=== PATIENT | female | born 1955 | race Two or more races ===

== ENCOUNTER 2021-06-23 15:32 | Inpatient (IN) | payer OTHER ==
[~2021-06-23] VITALS: Ht 154.9 cm; Wt 59.6 kg
[2021-06-23 16:06] LABS: Urine Bacteria FEW /hpf (None Seen); Urine Blood 1+ /uL (Negative); Urine Specific Gravity 1.016 (1.001-1.035); Urine WBC 14 /hpf (0 - 5)
[2021-06-23 16:16] LABS: Basophils # (auto) 0.2 10 ^3/uL (0-0.2); Basophils % (auto) 1.1 % (0.0-2.0); Eosinophils # (auto) 0.2 10 ^3/uL (0-0.8); Eosinophils % (auto) 1.2 % (0.0-7.0); Hematocrit 40.3 % (36.0-46.0); Hemoglobin 13.6 g/dL (12.2-16.2); Lymphocytes # (auto) 4.3 10 ^3/uL (0.4-5.4); Lymphocytes % (auto) 30.4 % (10.0-50.0); Mean Corpuscular Hemoglobin 32.1 pg (28.0-32.0); Mean Corpuscular Hgb Conc. 33.8 g/dL (32.0-36.0); Monocytes # (auto) 0.9 10 ^3/uL (0-1.3); Monocytes % (auto) 6.1 % (0.0-12.0); Neutrophils # (auto) 8.7 10 ^3/uL (1.6-8.6); Neutrophils % (auto) 61.2 % (37.0-80.0); Nucleated Red Blood Cells % 0.2 %; Red Blood Cells 4.25 10^6/uL (4.0-5.20); Red Cell Distribution Width 13.9 % (11.8-14.3); White Blood Cell 14.2 10^3/uL (4.4-10.8)
[2021-06-23 16:34] LABS: Albumin 3.6 g/dL (3.4-5.0); BUN/Creatinine Ratio 16.7; Calcium 9.2 mg/dL (8.5-10.1); Magnesium 2.2 mg/dL (1.6-2.6); Potassium 3.3 mmol/L (3.5-5.1)
[2021-06-23 16:37] LABS: Bilirubin, Total 0.5 mg/dL (0.2-1.0); Total Protein 8.4 g/dL (6.4-8.2)
[2021-06-23] MEDS ORDERED: cefTRIAXone 1GM/50ML D5W 50 ML IV ONE (21:15)
[2021-06-23] MEDS ORDERED: metroNIDAZOLE 500MG/100ML 100 ML IV ONE (21:15)
[2021-06-24] MEDS ORDERED: ONDANSETRON HCL 4 MG/2 ML VIAL IV PRN (00:45)
[2021-06-24] MEDS ORDERED: TEMAZEPAM 15 MG CAP PO PRN (00:45)
[2021-06-24] MEDS: ACETAMINOPHEN 325 MG TAB PO PRN (02:14)
[2021-06-24] MEDS ORDERED: HYDROcodone-ACET 5/325MG TAB PO PRN (03:45)
[2021-06-24] MEDS ORDERED: PNEUMOCOCCAL VACC POLYS 25 MCG/0.5 ML VIAL IM ONE (04:45)
[2021-06-24 04:47] VITALS: BP 107/68
[2021-06-24 05:00] VITALS: BP 107/68
[2021-06-24] MEDS: amLODIPine BESYLATE 5 MG TAB PO SCH (10:53)
[2021-06-24] MEDS: ENOXAPARIN SOD 40 MG/0.4 ML SYRINGE SC SCH (10:53)
[2021-06-24 17:00] VITALS: BP 121/62
[2021-06-24] MEDS ORDERED: LACTULOSE 20Gm/30ML SOLN PO PRN (19:00)
[2021-06-24] MEDS ORDERED: levoFLOXacin 750MG 150 ML IV SCH (20:00)
[2021-06-24] MEDS ORDERED: cefTRIAXone 1GM/50ML D5W 50 ML IV SCH (22:00)
[2021-06-24] MEDS ORDERED: diphenhdrAMINE HCL 50 MG/1 ML VL IV PRN (22:00)
[2021-06-24 22:15] VITALS: BP 103/69
[2021-06-24] MEDS: ATORVASTATIN 20 MG TAB PO SCH (22:17)
[2021-06-25] MEDS: ACETAMINOPHEN 325 MG TAB PO PRN ×2 (04:33→20:43)
[2021-06-25 05:10] VITALS: BP 118/64
[2021-06-25 06:13] LABS: Basophils # (auto) 0.1 10 ^3/uL (0-0.2); Basophils % (auto) 0.7 % (0.0-2.0); Eosinophils # (auto) 0.3 10 ^3/uL (0-0.8); Eosinophils % (auto) 2.7 % (0.0-7.0); Hemoglobin 12.7 g/dL (12.2-16.2); Lymphocytes # (auto) 3.5 10 ^3/uL (0.4-5.4); Lymphocytes % (auto) 37.8 % (10.0-50.0); Mean Corpuscular Hemoglobin 32.7 pg (28.0-32.0); Mean Corpuscular Hgb Conc. 34.5 g/dL (32.0-36.0); Mean Corpuscular Volume 94.8 fL (80.0-100.0); Monocytes # (auto) 0.7 10 ^3/uL (0-1.3); Monocytes % (auto) 7.6 % (0.0-12.0); Neutrophils # (auto) 4.8 10 ^3/uL (1.6-8.6); Neutrophils % (auto) 51.2 % (37.0-80.0); Nucleated Red Blood Cells % 0.1 %; Red Cell Distribution Width 13.6 % (11.8-14.3); White Blood Cell 9.3 10^3/uL (4.4-10.8)
[2021-06-25 06:30] LABS: Albumin 3.1 g/dL (3.4-5.0); Calcium 8.7 mg/dL (8.5-10.1); Potassium 3.5 mmol/L (3.5-5.1)
[2021-06-25 06:36] LABS: BUN/Creatinine Ratio 15.5; Bilirubin, Total 0.5 mg/dL (0.2-1.0); Total Protein 7.3 g/dL (6.4-8.2)
[2021-06-25 09:00] VITALS: BP 127/68
[2021-06-25] MEDS: amLODIPine BESYLATE 5 MG TAB PO SCH (09:20)
[2021-06-25] MEDS: ENOXAPARIN SOD 40 MG/0.4 ML SYRINGE SC SCH (09:20)
[2021-06-25] MEDS: cefTRIAXone 1GM/50ML D5W 50 ML IV SCH (09:20)
[2021-06-25 13:00] VITALS: BP 106/74
[2021-06-25 16:34] VITALS: BP 119/78
[2021-06-25] MEDS: ATORVASTATIN 20 MG TAB PO SCH (21:27)
[2021-06-25 23:05] VITALS: BP 119/62
[2021-06-26 05:37] VITALS: BP 110/50
[2021-06-26] MEDS: cefTRIAXone 1GM/50ML D5W 50 ML IV SCH (08:45)
[2021-06-26] MEDS: amLODIPine BESYLATE 5 MG TAB PO SCH (08:46)
[2021-06-26] MEDS: ENOXAPARIN SOD 40 MG/0.4 ML SYRINGE SC SCH (08:50)
[2021-06-26 09:00] VITALS: BP 119/56
[2021-06-26 13:00] VITALS: BP 109/53
[2021-06-26] MEDS ORDERED: LEVO500T31 PO (15:35)
[2021-06-26 17:00] VITALS: BP 104/65
== END 2021-06-26 16:30 | disposition home or self-care (01) | DRG 689 ==
LOC: ER 15:32 → OVERFLOW 06-24 00:40 → EAST 06-24 02:27
PROVIDERS: ADMIT Nurse Practitioner; ATTEND Internal Medicine
DX: N10 Acute pyelonephritis (principal); K85.90 Acute pancreatitis without necrosis or infection, unspecified; E11.9 Type 2 diabetes mellitus without complications; E78.5 Hyperlipidemia, unspecified; I10 Essential (primary) hypertension; Z90.49 Acquired absence of other specified parts of digestive tract; Z20.822 Contact with and (suspected) exposure to COVID-19
CPT/HCPCS: 36415; 74176; 80053; 81001; 83605; 83690; 83735; 85025; 87040; 87086; 87088; 87186; 93005; 96365; 96367; G0378; J0696; J1956; J3490

== ENCOUNTER 2024-04-28 13:07 | Inpatient (IN) | payer OTHER ==
[~2024-04-28] VITALS: Ht 154.9 cm; Wt 64.5 kg
[~2024-04-28 13:07] MED LIST: LEVO500T31 PO
--- NOTE | 2024-04-28 13:50 | DVH ---
EXAM: XY CHEST PORTABLE HISTORY: sob COMPARISON: None TECHNIQUE: Portable upright AP view of the chest was performed. FINDINGS: No pneumothorax, consolidative infiltrates, or pulmonary edema. The heart is not enlarged. The aortic arch is calcific. There is mild thoracic degenerative disc disease. Surgical clips in the right upper quadrant are consistent with prior cholecystectomy. IMPRESSION: No acute intrathoracic process.
[2024-04-28 14:01] LABS: Basophils # (auto) 0.1 10 ^3/uL (0-0.2); Eosinophils # (auto) 0.1 10 ^3/uL (0-0.8); Hematocrit 37.9 % (36.0-46.0); Lymphocytes # (auto) 2.6 10 ^3/uL (0.4-5.4); Lymphocytes % (auto) 30.1 % (10.0-50.0); Mean Corpuscular Hemoglobin 33.7 pg (28.0-32.0); Mean Corpuscular Hgb Conc. 34.1 g/dL (32.0-36.0); Mean Corpuscular Volume 98.7 fL (80.0-100.0); Monocytes # (auto) 0.6 10 ^3/uL (0-1.3); Monocytes % (auto) 6.5 % (0.0-12.0); Neutrophils # (auto) 5.2 10 ^3/uL (1.6-8.6); Neutrophils % (auto) 61.4 % (37.0-80.0); Nucleated Red Blood Cells % 0.2 %; Platelet Count (auto) 274 10^3/uL (140-450); Red Blood Cells 3.84 10^6/uL (4.0-5.20); Red Cell Distribution Width 14.2 % (11.8-14.3); White Blood Cell 8.5 10^3/uL (4.4-10.8)
--- NOTE | 2024-04-28 14:08 | ED.PDOC ---
HPI Comments 68 y/o F, with PMHX of HTN, DM, and HLD presents to the ED for CC of chest pain. Patient states, that she has been experiencing substernal chest pain that radiates to her back with associated symptoms of SOB and cough x5days. Patient relays, that she was seen at [facility] yesterday (04/28/24) and ELOPED due to long wait times. Patient denies fever, chills, body-aches, lightheadedness, or N/V/D. No other associated symptoms, modifiers, recent injuries or sick contacts at this time. Time Seen by MD: 13:20 Primary Care Provider: KARRIE Reviewed Notes: Nurses Notes, Medications, Allergies Allergies: Coded Allergies: NO KNOWN ALLERGIES (Unverified , 07/10/13) Home Meds Active Scripts Levofloxacin (Levaquin) 500 Mg Tab, 500 MG PO DAILY for 10 Days, #10 TAB Prov:BOBBY LOVE Asia KING 06/26/21 Information Source: Patient Mode of Arrival: Ambulatory Timing: Days Duration: Since onset Prehospital treatment: None Location: Substernal Radiation: Back Onset: At Rest Cardiac Risk Factors: Hyperlipidemia, HTN, Diabetes PE Risk Factors: None History of: None Modifying Factors: Nothing Associated Signs and Symptoms: SOB Past Medical History PAST MEDICAL HISTORY: HTN Surgical History: Denies all surgeries TESTING TECH History: No Pertinent TESTING TECH History Family History Family History: Unknown Social History Smoker: Non-Smoker Alcohol: Denies ETOH Use Drugs: Denies Drug Use Lives In: Home Constitutional: denies: chills, diaphoresis, fatigue, fever, malaise, sweats, weakness, others EENTM: denies: blurred vision, double vision, ear bleeding, ear discharge, ear drainage, ear pain, ear ringing, eye pain, eye redness, hearing loss, mouth pain, mouth swelling, nasal discharge, nose bleeding, nose congestion, nose pain, photophobia, tearing, throat pain, throat swelling, voice changes, others Respiratory: reports: cough; denies: hemoptysis, orthopnea, SOB at rest, shortness of breath, SOB with excertion, stridor, wheezing, others Cardiovascular: reports: chest pain; denies: dizzy spells, diaphoresis, Dyspnea on exertion, edema, irregular heart beat, left arm pain, lightheadedness, palpitations, PND, syncope, others Gastrointestinal: denies: abdomen distended, abdominal pain, blood streaked bowels, constipated, diarrhea, dysphagia, difficulty swallowing, hematemesis, melena, nausea, poor appetite, poor fluid intake, rectal bleeding, rectal pain, vomiting, others Genitourinary: denies: abnormal vagina bleeding, burning, dyspareunia, dysuria, flank pain, frequency, hematuria, incontinence, pain, , vagina discharge, urgency, others Neurological: denies: dizziness, fainting, headache, left sided numbness, left sided weakness, numbness, paresthesia, pre-existing deficit, right sided numbness, right sided weakness, seizure, speech problems, tingling, tremors, weakness, others Musculoskeletal: reports: back pain; denies: gout, joint pain, joint swelling, muscle pain, muscle stiffness, neck pain, others Integumetry: denies: bruises, change in color, change in hair/nails, dryness, laceration, lesions, lumps, rash, wounds, others Allergic/Immunocompromised: denies: Difficulty Healing, Frequent Infections, Hives, Itching, others Hematologic/Lymphatic: denies: anemia, blood clots, easy bleeding, easy bruising, swollen glands, others Endocrine: denies: excessive hunger, excessive sweating, excessive thirst, excessive urination, flushing, intolerance to cold, intolerance to heat, unexplained weight gain, unexplained weight loss, others Psychiatric: denies: anxiety, bipolar disorder, depression, hopeless, panic disorder, schizophrenia, sleepless, suicidal, others All Other Systems: Reviewed and Negative Physical Exam General Appearance: Moderate Distress HEENT: Normal ENT Inspection, Pharynx Normal, TMs Normal Neck: Full Range of Motion, Non-Tender, Normal, Normal Inspection Respiratory: Chest Non-Tender, Lungs Clear, No Accessory Muscle Use, No Respiratory Distress, Normal Breath Sounds Cardiovascular: No Edema, No JVD, No Murmur, No Gallop, Normal Peripheral Pulses, Regular Rate/Rhythm Breast Exam: Deferred Gastrointestinal: No Organomegaly, Non Tender, No Pulsatile Mass, Normal Bowel Sounds, Soft Genitalia: Deferred Pelvic: Deferred Rectal: Deferred Extremities: Normal inspection, No pedal edema Musculoskeletal : Apperance: Normal Neurologic: Alert, No Motor Deficits, No Sensory Deficits Cerebellar Function: NOT DONE Reflexes: NOT DONE Skin: Dry, Normal Color, Warm Peripheral Pulses: 3+ Radial (R), 3+ Radial (L) Lymphatic: No Adenopathy Was a procedure done? Was a procedure done?: No CP Differential Dx Differential Diagnosis: A-fib, A-Flutter, Angina, Anxiety / Panic Attack, Atrial Dysrhythmia, Electrolyte Disorder Differential Diagnosis: HTN Essential, HTN Accelerated Differential Diagnosis: Chest Wall Pain, Cholelithiasis, Costochondritis, Pericarditis, Pneumonia X-Ray, Labs, Meds, VS Vital Signs Date Time Temp Pulse Resp B/P (MAP) Pulse Ox O2 Delivery O2 Flow Rate FiO2 04/28/24 13:46 97.8 84 18 143/82 (102) 97 04/28/24 13:16 83 Lab Test 04/28/24 13:40 Range/Units White Blood Count 8.5 4.4-10.8 10^3/uL Red Blood Count 3.84 L 4.0-5.20 10^6/uL Hemoglobin 13.0 12.2-16.2 g/dL Hematocrit 37.9 36.0-46.0 % Mean Corpuscular Volume 98.7 80.0-100.0 fL Mean Corpuscular Hemoglobin 33.7 H 28.0-32.0 pg Mean Corpuscular Hemoglobin Concent 34.1 32.0-36.0 g/dL Red Cell Distribution Width 14.2 11.8-14.3 % Platelet Count 274 140-450 10^3/uL Mean Platelet Volume 7.9 6.9-10.8 fL Neutrophils (%) (Auto) 61.4 37.0-80.0 % Lymphocytes (%) (Auto) 30.1 10.0-50.0 % Monocytes (%) (Auto) 6.5 0.0-12.0 % Eosinophils (%) (Auto) 1.0 0.0-7.0 % Basophils (%) (Auto) 1.0 0.0-2.0 % Neutrophils # (Auto) 5.2 1.6-8.6 10 ^3/uL Lymphocytes # (Auto) 2.6 0.4-5.4 10 ^3/uL Monocytes # (Auto) 0.6 0-1.3 10 ^3/uL Eosinophils # (Auto) 0.1 0-0.8 10 ^3/uL Basophils # (Auto) 0.1 0-0.2 10 ^3/uL Nucleated Red Blood Cells 0.2 % Sodium Level 140 136-145 mmol/L Potassium Level 4.3 3.5-5.1 mmol/L Chloride Level 108 H 98-107 mmol/L Carbon Dioxide Level 23 20-31 mmol/L Anion Gap 9 5-15 Blood Urea Nitrogen 15 9-23 mg/dL Creatinine 1.01 0.550-1.02 mg/dL Glomerular Filtration Rate Calc 61 >90 mL/min BUN/Creatinine Ratio 14.9 10.0-20.0 Serum Glucose 105 74-106 mg/dL Calcium Level 9.9 8.7-10.4 mg/dL Troponin I High Sensitivity 7 </=34 ng/L [place] [id number] Ph: [phone] DIAGNOSTIC IMAGING Diagnostic Imaging Report : [id number] Signed PATIENT: KASIE JHA ACCT: [id number] UNIT: [id number] : 1955 LOC: ER ROOM / BED: / AGE / SEX: 68 / F ADM STATUS: REG ER SERVICE 1330 ORDERING PHYSICIAN: VA CARTAGENA MD PROCEDURE(s): CXRP - CHEST PORTABLE REASON: sob ORDER NUMBER(s): [id number], ACCESSION NUMBER(s): [id number] EXAM: XY CHEST PORTABLE HISTORY: sob COMPARISON: None TECHNIQUE: Portable upright AP view of the chest was performed. FINDINGS: No pneumothorax, consolidative infiltrates, or pulmonary edema. The heart is not enlarged. The aortic arch is calcific. There is mild thoracic degenerative disc disease. Surgical clips in the right upper quadrant are consistent with prior cholecystectomy. IMPRESSION: No acute intrathoracic process. ATED BY: ADOLFO MARTINEZ MD DICTATED DATE/TIME: 04/28/241346 SIGNED BY: ADOLFO MARTINEZ MD SIGNED DATE/TIME: 04/28/241346 CC: Patient alert. Complaining of chest pain. EKG does show changes. Vitals stable. Answering questions. Chest x-ray reviewed does not show any acute process. Was given aspirin. Explained to the patient. Continue monitoring. Time of 1ST Reevaluation: 13:50 Reevaluation 1ST: Unchanged Patient Education/Counseling: Diagnosis, Treatment Family Education/Counseling: No Family Present Departure 1 Departure Time of Disposition: 15:07 Impression: Primary Impression: Chest pain of unknown etiology Disposition: ADMITTED INPATIENT Admit to: Med Surg Condition: Guarded Critical Care Note Critical Care Time?: No Stability Stability form required: No Heart Score Heart Score: Heart Score Response (Comments) Value History Slightly Suspicious 0 EKG Normal 0 Age >65 2 Risk Factors >3 or Hx ASHD 2 Troponin Normal limit 0 Total 4 I personally scribed for VA CARTAGENA MD ([email or web address]) on 04/28/24 at 14:08. Electronically submitted by Kaley Soto ([email or web address]). I personally scribed for VA CARTAGENA MD ([email or web address]) on 04/28/24 at 14:13. Electronically submitted by Kaley Soto ([email or web address]). VA CARTAGENA MD Apr 28, 2024 14:08
[2024-04-28 14:10] LABS: Potassium 4.3 mmol/L (3.5-5.1); Sodium 140 mmol/L (136-145)
[2024-04-28 14:11] LABS: Anion Gap 9 (5-15); Carbon Dioxide 23 mmol/L (20-31)
[2024-04-28 14:12] LABS: Calcium 9.9 mg/dL (8.7-10.4); Chloride 108 mmol/L (98-107)
[2024-04-28 14:16] LABS: Glucose 105 mg/dL (74-106)
[2024-04-28 14:17] LABS: BUN/Creatinine Ratio 14.9 (10.0-20.0); Blood Urea Nitrogen 15 mg/dL (9-23)
[2024-04-28 17:25] VITALS: PULSE 69; RESP 18; O2SAT 98
[2024-04-28] MEDS: ASPirin 325 MG TAB PO ONE (17:25)
[2024-04-28] MEDS: NITROGLYCERIN 0.4 MG SL TAB SL ONE (17:26)
[2024-04-28 17:55] LABS: Urine Bacteria None Seen /hpf (None Seen)
[2024-04-28 18:13] LABS: Urine Blood 1+ /uL (Negative); Urine Clarity Clear (Clear); Urine Color Light-Yellow (Yellow); Urine Protein, UAD Negative (Negative); Urine Specific Gravity 1.011 (1.001-1.035); Urine Squamous Epithelial Cell FEW /hpf (<5); Urine Urobilinogen Normal (Negative); Urine WBC 2 /HPF (0-5); Urine pH 6.5 (5.0-9.0)
[2024-04-28] MEDS: MORPHINE SULFATE INJ 2 MG/ml SYRG IV ONE (21:38)
[2024-04-28] MEDS ORDERED: ACETAMINOPHEN 325 MG TAB PO PRN (22:30)
[2024-04-28] MEDS ORDERED: hydrALAZINE HCL 20 MG/ML VL IV PRN (22:30)
[2024-04-28] MEDS ORDERED: DOCUSATE SOD 100 MG CAP PO PRN (22:30)
[2024-04-28] MEDS ORDERED: NITROGLYCERIN 0.4 MG SL TAB SL PRN (23:30)
[2024-04-28] MEDS ORDERED: MORPHINE SULFATE INJ 2 MG/ml SYRG IV PRN (23:30)
--- NOTE | 2024-04-28 23:31 | DVHHP2 ---
History of Present Illness Reason for Visit: Chest pain of unknown etiology History of Present Illness The patient is a 68-year-old female with past medical history of hypertension and HLD presented to [facility] ED with complaint of chest pain. Patient reports that, she was seen at [facility] yesterday (04/28/24) and ELOPED due to long wait times. Patient was seen and evaluated in the ED, laboratory data shows WBC 8.5, platelets 274, sodium 140, potassium 4.3, BUN 15, creatinine 1.01, GFR 61, glucose 105, troponin 7. Patient was given aspirin 325 mg p.o. x1, please see medication orders section in the computer. On my assessment, patient denies chest pain at this moment, no headache, no dizziness, no diaphoresis, no shortness of breaths, no nausea, no vomiting, no fever, no chills. Patient was admitted for further evaluation and medical management. Past Medical History HTN, HLD Past Surgical History Denies all surgeries Family History Reviewed, noncontributory to the management of this case. Past Social History The patient lives at home, denies smoking, alcohol or illicit drugs abuse. Review of Systems Constitutional: Yes: Weakness; No: Fever, Chills, Sweats, Malaise, Other Eyes: No: Pain, Vision change, Conjunctivae inflammation, Eyelid inflammation, Other, Redness ENT: No: Ear pain, Ear discharge, Nose pain, Nose discharge, Nose congestion, Mouth pain, Mouth swelling, Throat pain, Throat swelling, Other Respiratory: Cough; No: Dry, Shortness of breath, SOB with excertion, Wheezing, Hemoptysis, Pleuritic Pain, Sputum, Wheezing, Other Cardiovascular: Chest Pain; No: Palpitations, Orthopnea, Paroxysmal Noc. Dyspnea, Edema, Lt Headedness, Other Gastrointestinal: No: Nausea, Vomiting, Abdominal Pain, Diarrhea, Constipation, Melena, Hematochezia, Other Genitourinary: No Dysuria, No Frequency, No Incontinence, No Hematuria, No Retention, No Other Musculoskeletal: back pain; No: other, neck pain, shoulder pain, arm pain, hand pain, leg pain, foot pain Skin: No: Rash, Lesions, Jaundice, Bruising, Other Neurological: No: Weakness, Numbness, Incoordination, Change in speech, Confusion, Seizures, Other Allergies: Coded Allergies: NO KNOWN ALLERGIES (Unverified , 07/10/13) Medications Current Medications Medications Dose Ordered Sig/Danny Route Start Time Stop Time Status Last Admin Dose Admin Aspirin 81 mg DAILY PO 04/29/24 10:00 Hydralazine HCl 10 mg Q6HP PRN IV 04/28/24 22:30 Sodium Chloride 10 ml Q8HR IV 04/29/24 06:00 Acetaminophen/ Hydrocodone Bitart 1 tab Q4HP PRN PO 04/28/24 22:30 Ondansetron HCl 4 mg Q4HP PRN IV 04/28/24 22:30 Docusate Sodium 100 mg BIDPRN PRN PO 04/28/24 22:30 Acetaminophen 650 mg Q6HP PRN PO 04/28/24 22:30 Exam Vital Signs Vital Signs Date Time Temp Pulse Resp B/P (MAP) Pulse Ox O2 Delivery O2 Flow Rate FiO2 04/28/24 22:09 76 17 134/88 04/28/24 21:45 98.1 95 98.1 04/28/24 17:25 Room Air* 0 21 General Appearance: Alert, Oriented X3, Cooperative, No acute distress HEENT: Atraumatic, PERRLA, EOMI, Mucous membr. moist/pink Respiratory: Clear to auscultation, Normal air movement Cardiovascular: Regular rate, Normal S1, Normal S2, No murmurs Abdominal: Normal bowel sounds, Soft, No tenderness, No hepatospenomegaly, No masses Extremities: No clubbing, No cyanosis, No edema, Normal pulses, No tenderness/s welling Skin: No rashes, No breakdown, No significant lesion Neuro: Normal speech, Normal tone, Sensation intact, Cranial nerves 3-12 NL, Reflexes 2+ Psych/Mental Status: Mental status NL, Mood NL Labs/Xrays Labs Test 04/28/24 17:30 04/28/24 13:40 Range/Units Urine Color Light-yellow Yellow Urine Clarity Clear Clear Urine pH 6.5 5.0-9.0 Urine Specific [place] 1.011 1.001-1.035 Urine Protein Negative Negative Urine Ketones Negative Negative Urine Blood 1+ H Negative /uL Urine Nitrite Negative Negative Urine Bilirubin Negative Negative Urine Urobilinogen Normal Negative mg/dL Urine Leukocyte Esterase Negative Negative /uL Urine RBC 2 0 - 4 /hpf Urine Microscopic WBC 2 0-5 /HPF Urine Squamous Epithelial Cells Few <5 /hpf Urine Bacteria None seen None Seen /hpf Urine Glucose Normal Normal mg/dL White Blood Count 8.5 4.4-10.8 10^3/uL Red Blood Count 3.84 L 4.0-5.20 10^6/uL Hemoglobin 13.0 12.2-16.2 g/dL Hematocrit 37.9 36.0-46.0 % Mean Corpuscular Volume 98.7 80.0-100.0 fL Mean Corpuscular Hemoglobin 33.7 H 28.0-32.0 pg Mean Corpuscular Hemoglobin Concent 34.1 32.0-36.0 g/dL Red Cell Distribution Width 14.2 11.8-14.3 % Platelet Count 274 140-450 10^3/uL Mean Platelet Volume 7.9 6.9-10.8 fL Neutrophils (%) (Auto) 61.4 37.0-80.0 % Lymphocytes (%) (Auto) 30.1 10.0-50.0 % Monocytes (%) (Auto) 6.5 0.0-12.0 % Eosinophils (%) (Auto) 1.0 0.0-7.0 % Basophils (%) (Auto) 1.0 0.0-2.0 % Neutrophils # (Auto) 5.2 1.6-8.6 10 ^3/uL Lymphocytes # (Auto) 2.6 0.4-5.4 10 ^3/uL Monocytes # (Auto) 0.6 0-1.3 10 ^3/uL Eosinophils # (Auto) 0.1 0-0.8 10 ^3/uL Basophils # (Auto) 0.1 0-0.2 10 ^3/uL Nucleated Red Blood Cells 0.2 % Sodium Level 140 136-145 mmol/L Potassium Level 4.3 3.5-5.1 mmol/L Chloride Level 108 H 98-107 mmol/L Carbon Dioxide Level 23 20-31 mmol/L Anion Gap 9 5-15 Blood Urea Nitrogen 15 9-23 mg/dL Creatinine 1.01 0.550-1.02 mg/dL Glomerular Filtration Rate Calc 61 >90 mL/min BUN/Creatinine Ratio 14.9 10.0-20.0 Serum Glucose 105 74-106 mg/dL Calcium Level 9.9 8.7-10.4 mg/dL Troponin I High Sensitivity 7 </=34 ng/L PATIENT: KASIE JHA ACCT: [id number] UNIT: [id number] : 1955 LOC: ER ROOM / BED: / AGE / SEX: 68 / F ADM STATUS: REG ER SERVICE 1330 ORDERING PHYSICIAN: VA CARTAGENA MD PROCEDURE(s): CXRP - CHEST PORTABLE REASON: sob ORDER NUMBER(s): [id number], ACCESSION NUMBER(s): [id number] EXAM: XY CHEST PORTABLE HISTORY: sob COMPARISON: None TECHNIQUE: Portable upright AP view of the chest was performed. FINDINGS: No pneumothorax, consolidative infiltrates, or pulmonary edema. The heart is not enlarged. The aortic arch is calcific. There is mild thoracic degenerative disc disease. Surgical clips in the right upper quadrant are consistent with prior cholecystectomy. IMPRESSION: No acute intrathoracic process. Assessment/Plan Assessment/Plan Chest pain of unknown etiology Back pain Generalized weakness Plan 1. Admit to telemetry unit 2. Breathing treatment 3. Pain control management 4. Management of fluids and electrolytes 5. Consultation for hospitalist 6. Diagnostic tests chest x-ray 7. DVT prophylaxis-on aspirin 8. Repeat labs CBC, CMP in a.m. 9. Continue with current medical management 10. Treatment plan discussed with patient and RN. Patient verbalized understanding. Plan discussed with: Patient, Other (RN) My Orders Orders - JULIA PEÑALOZA DNP Procedure Category Date Status Time Aspirin Tablet PHA 04/29/24 In Process 10:00 Hydralazine Injection PHA 04/28/24 In Process (Apresoline Inject 22:30 Allergies NOAH 04/28/24 In Process 22:29 Code Status CODE 04/28/24 Transmitted 22:29 Sodium Chloride Lock PHA 04/29/24 In Process (Saline Lock Ns) 06:00 Oxygen Per Hour RT 04/28/24 Transmitted 22:29 Hydrocodone-Acet PHA 04/28/24 In Process 5/325mg Tab ([employer] 22:30 Ondansetron Hcl PHA 04/28/24 In Process (Zofran) 22:30 Docusate Sodium PHA 04/28/24 In Process Capsule (Colace 22:30 Complete Blood Count LAB 04/29/24 Verified 04:00 Comprehensive LAB 04/29/24 Verified Metabolic Panel 04:00 Cardiac DIET 04/29/24 Transmitted Diet-2gna,Lofat,Lochol Breakfast Condition: Serious NOAH 04/28/24 In Process 22:29 Acetaminophen Tablet PHA 04/28/24 In Process (Tylenol Tablet) 22:30 Bedrest With Bathroom NOAH 04/28/24 In Process Privileg 22:29 Sequential NOAH 04/28/24 In Process Compression Device Problem List: (1) Chest pain of unknown etiology (2) Back pain (3) Generalized weakness Date of Service: Apr 28, 2024 Billing Provider: JULIA PEÑALOZA DNP Common Visit Codes: [id number] INP/OBS CARE (HIGH) JULIA PEÑALOZA DNP Apr 28, 2024 23:31
[2024-04-29] MEDS ORDERED: PANT40TA2 PO (01:49)
[2024-04-29] MEDS ORDERED: CETI10TA2 PO (01:49)
[2024-04-29] MEDS ORDERED: ATOR20TA50 PO (01:49)
[2024-04-29] MEDS ORDERED: LISI2.5T47 PO (01:49)
[2024-04-29] MEDS ORDERED: ESCI10TA PO (01:49)
[2024-04-29] MEDS ORDERED: HYDR-4491 PO (01:49)
[2024-04-29] MEDS ORDERED: METF-370 PO (01:49)
[2024-04-29] MEDS: HYDROcodone-ACET 5/325MG TAB PO PRN (02:58)
[2024-04-29 06:23] LABS: Basophils # (auto) 0.1 10 ^3/uL (0-0.2); Basophils % (auto) 1.5 % (0.0-2.0); Eosinophils # (auto) 0.2 10 ^3/uL (0-0.8); Hematocrit 35.7 % (36.0-46.0); Hemoglobin 12.1 g/dL (12.2-16.2); Lymphocytes # (auto) 3.4 10 ^3/uL (0.4-5.4); Lymphocytes % (auto) 38.2 % (10.0-50.0); Mean Corpuscular Hemoglobin 33.5 pg (28.0-32.0); Mean Corpuscular Hgb Conc. 33.9 g/dL (32.0-36.0); Mean Corpuscular Volume 98.9 fL (80.0-100.0); Monocytes # (auto) 0.6 10 ^3/uL (0-1.3); Monocytes % (auto) 6.6 % (0.0-12.0); Neutrophils # (auto) 4.7 10 ^3/uL (1.6-8.6); Neutrophils % (auto) 51.7 % (37.0-80.0); Nucleated Red Blood Cells % 0.1 %; Platelet Count (auto) 232 10^3/uL (140-450); Red Blood Cells 3.61 10^6/uL (4.0-5.20)
[2024-04-29 06:30] LABS: Alanine Aminotransferase 18 U/L (7-40); Albumin 4.2 g/dL (3.2-4.8); Alkaline Phosphatase 72 U/L (46-116); Anion Gap 7 (5-15); Aspartate Aminotransferase 32 U/L (13-40); BUN/Creatinine Ratio 19.8 (10.0-20.0); Blood Urea Nitrogen 18 mg/dL (9-23); Calcium 9.7 mg/dL (8.7-10.4); Carbon Dioxide 24 mmol/L (20-31); Chloride 106 mmol/L (98-107); Sodium 137 mmol/L (136-145); Total Protein 7.3 g/dL (5.7-8.2)
[2024-04-29] MEDS: SODIUM CHLOR 0.9% PF (SALINE LOCK) 10ML VIAL/SYR IV SCH (06:30)
[2024-04-29 06:36] LABS: Bilirubin, Total 0.3 mg/dL (0.2-1.0); Glucose 106 mg/dL (74-106)
[2024-04-29 08:30] VITALS: BP 107/46; PULSE 61; RESP 16; TEMP 97.5; O2SAT 99
--- NOTE | 2024-04-29 08:32 | ECG ---
[facility] Test Date: 2024-04-28 Test Time: 13:16:12 Pat Name: KASIE JHA Department: ER Room: [address] [place] [id number] Gender: F Cupola Liner: ER : 1955 Requested By: VA CARTAGENA Order Number: [id number] Reading MD: Geraldo Biggs Measurements Intervals [place] Rate: 83 P: 71 AK: 107 QRS: 80 QRSD: 82 T: 53 QT: 380 QTc: 447 Interpretive Statements Sinus rhythm Short AK interval Low voltage, precordial leads Borderline T abnormalities, anterior leads Electronically Signed On 04-30-2024 18:00:32 PST by Geraldo Biggs Please click the below link to view image of tracing.
[2024-04-29] MEDS: ASPirin 81 mg TAB PO SCH (09:52)
--- NOTE | 2024-04-29 11:43 | DVHPN2 ---
Subjective 68-year-old female with history of hypertension dyslipidemia comes to chief complaint of back pain and chest pain for five days, the pain is in the upper back radiated to the front associated with some dry cough The pain is worse with a cough and movement Changes from previous H/P or p: Changes Eyes: No Pain, No Vision change, No Conjunctivae inflammation, No Eyelid inflammation, No Other, No Redness ENT: No Ear pain, No Ear discharge, No Nose pain, No Nose discharge, No Nose congestion, No Mouth pain, No Mouth swelling, No Throat pain, No Throat swelling, No Other Cardiovascular: Chest Pain; No Palpitations, No Orthopnea, No Paroxysmal Noc. Dyspnea, No Edema, No Lt Headedness, No Other Respiratory: Cough; No Dry, No Shortness of breath, No SOB with excertion, No Wheezing, No Hemoptysis, No Pleuritic Pain, No Sputum, No Other Gastrointestinal: No Nausea, No Vomiting, No Abdominal Pain, No Diarrhea, No Constipation, No Melena, No Hematochezia, No Other Genitourinary: No Dysuria, No Frequency, No Incontinence, No Hematuria, No Retention, No Other Musculoskeletal: No other, No neck pain, No shoulder pain, No arm pain; back pain; No hand pain, No leg pain, No foot pain Skin: No Rash, No Lesions, No Jaundice, No Bruising, No Other Objective Vitals Vital Signs Date Time Temp Pulse Resp B/P (MAP) Pulse Ox O2 Delivery O2 Flow Rate FiO2 04/29/24 08:30 97.5 61 16 107/46 (66) 99 97.5 04/28/24 17:25 Room Air* 0 21 General Appearance: Alert, Oriented X3, Cooperative Lungs: Clear to auscultation, Normal air movement Cardiovascular: Regular rate, Normal S1, Normal S2 Abdomen: Normal bowel sounds, Soft, No tenderness Extremities: No edema Medications Current Medications Medications Dose Ordered Sig/Danny Route Start Time Stop Time Status Last Admin Dose Admin Aspirin 81 mg DAILY PO 04/29/24 10:00 04/29/24 09:52 81 MG Hydralazine HCl 10 mg Q6HP PRN IV 04/28/24 22:30 Sodium Chloride 10 ml Q8HR IV 04/29/24 06:00 04/29/24 06:30 10 ML Acetaminophen/ Hydrocodone Bitart 1 tab Q4HP PRN PO 04/28/24 22:30 04/29/24 02:58 1 TAB Ondansetron HCl 4 mg Q4HP PRN IV 04/28/24 22:30 Docusate Sodium 100 mg BIDPRN PRN PO 04/28/24 22:30 Acetaminophen 650 mg Q6HP PRN PO 04/28/24 22:30 Nitroglycerin 0.4 mg Q5MINP PRN SL 04/28/24 23:30 Morphine Sulfate 2 mg Q30M PRN IV 04/28/24 23:30 Laboratory Results Laboratory Tests 04/29/24 04:48 Chemistry Test 04/28/24 13:40 04/29/24 04:48 Calcium Level 9.9 mg/dL (8.7-10.4) 9.7 mg/dL (8.7-10.4) Albumin 4.2 g/dL (3.2-4.8) Total Protein 7.3 g/dL (5.7-8.2) LFT Test 04/29/24 04:48 Alanine Aminotransferase (ALT) 18 U/L (7-40) Alkaline Phosphatase 72 U/L (46-116) Aspartate Amino Transferase (AST) 32 U/L (13-40) Total Bilirubin 0.3 mg/dL (0.2-1.0) Urinalysis Test 04/28/24 17:30 Urine Color Light-yellow (Yellow) Urine Clarity Clear (Clear) Urine pH 6.5 (5.0-9.0) Urine Specific [place] 1.011 (1.001-1.035) Urine Protein Negative (Negative) Urine Ketones Negative (Negative) Urine Blood 1+ /uL (Negative) H Urine Nitrite Negative (Negative) Urine Bilirubin Negative (Negative) Urine Urobilinogen Normal mg/dL (Negative) Urine Leukocyte Esterase Negative /uL (Negative) Urine RBC 2 /hpf (0 - 4) Urine Microscopic WBC 2 /HPF (0-5) Urine Squamous Epithelial Cells Few /hpf (<5) Urine Bacteria None seen /hpf (None Seen) Urine Glucose Normal mg/dL (Normal) Assessment/Plan Assessment/Plan Chest pain, most likely musculoskeletal Hypertension Dyslipidemia Plan Check troponins q.8 hours x2 Aspirin Echocardiogram Cardiology consult Hot pack p.r.n. to the neck and back muscles Ibuprofen p.r.n. Full code Monitor closely Plan discussed with: Patient My Orders Orders - MIDOU,WAHID MD Procedure Category Date Status Time Troponin-I Hs LAB 04/29/24 Logged 11:25 Date of Service: Apr 29, 2024 Billing Provider: IZABELLA LANE MD Common Visit Codes: NOT BILLABLE IZABELLA LANE MD Apr 29, 2024 11:43
[2024-04-29] MEDS ORDERED: IBUPROFEN 600 MG TAB PO PRN (11:45)
[2024-04-29] MEDS ORDERED: ACETAMINOPHEN 325 MG TAB PO PRN (12:30)
[2024-04-29 13:00] VITALS: BP 129/42; PULSE 58; RESP 17; TEMP 98; O2SAT 94
[2024-04-29 13:45] VITALS: PULSE 58; RESP 17
[2024-04-29] MEDS: PANTOPRAZOLE 40 MG TAB PO ONE (14:23)
[2024-04-29 17:00] VITALS: BP 114/43; PULSE 67; RESP 17; TEMP 98; O2SAT 97
[2024-04-29] MEDS: ONDANSETRON HCL 4 MG/2 ML VIAL IV PRN (18:58)
[2024-04-29 20:00] VITALS: PULSE 65; PULSE 68; RESP 20; O2SAT 99
[2024-04-29 21:00] VITALS: BP 106/43; PULSE 65; RESP 20; TEMP 98; O2SAT 99
[2024-04-30 01:00] VITALS: BP 131/48; PULSE 58; RESP 18; TEMP 96.9; O2SAT 98
[2024-04-30] MEDS: PANTOPRAZOLE 40 MG TAB PO SCH (05:13)
[2024-04-30 05:19] VITALS: BP 130/56; PULSE 60; RESP 19; TEMP 97.7; O2SAT 93
[2024-04-30 06:59] LABS: Cholesterol 220 mg/dL (< 200)
[2024-04-30 07:01] LABS: HDL Cholesterol 46 mg/dL (40-59)
[2024-04-30 07:10] LABS: LDL Cholesterol 146 mg/dL (< 100); Triglycerides 248 mg/dL (< 150)
[2024-04-30 08:00] VITALS: PULSE 62
[2024-04-30 09:00] VITALS: BP 114/60; PULSE 63; RESP 12; TEMP 97.3; O2SAT 96
--- NOTE | 2024-04-30 12:15 | DVHSR ---
APPROVED REPORT EXAM: Two-dimensional and M-mode echocardiogram with Doppler and color Doppler. Blood Pressure: 107/46 mmHg INDICATION Chest Pain RISK FACTORS Height: 5'1", Weight: 136 DIMENSIONS LVDd4.2 (3.8-5.7cm)LA (2D)4.3 (1.9-4.0cm)Aortic Root2.9 (2.0-3.7cm) LVDs2.8 (2.5-4.0cm)LA (MM) (1.9-4.0cm)Aortic Cusp Exc1.8 (1.5-2.0cm) EF (%) 63.0 (55-70%)Rt. Atrium3.5 (1.9-4.0cm)Asc. Aorta3.1 cm IVSd0.8 (0.7-1.1cm)RV (D) (1.8-2.4cm) PWd0.9 (0.7-1.1cm) Mitral Valve MitralMitral Stenosis E wave0.68m/sMV Mean GR.mmHg A wave0.93m/sMV Peak GR.mmHg E/A ratio0.72D MVAcm2 DECEL [id number] 1/2 Tim[place] Aortic Valve Aortic ValveAortic Stenosis V11.05m/Fran Mean GR.3mmHg V21.17m/Fran Peak GR.5mmHg LVOT Diameter1.9 (1.8-2.4cm)Doppler AVA2.54cm2 Pulmonic Valve V20.67m/s Tricuspid Valve TR Velocity2.64m/s [id number] Other Information Quality : Technically LimitedRhythm : Technically limited study due to body habitus. Conclusion lvef 60% by visual estimate normal rv function left atrium enlarged no severe valve abnormalities noted normal pericardium--fat pad noted
[2024-04-30 13:00] VITALS: BP 127/63; PULSE 58; RESP 16; TEMP 97.9; O2SAT 95
--- NOTE | 2024-04-30 13:20 | DVHDS2 ---
Discharge Summary Date of Admission Apr 28, 2024 at 23:30 Date of Discharge: Apr 30, 2024 Labs/Diagnostic Data: Laboratory Results Test 04/30/24 05:37 04/29/24 19:06 04/29/24 04:48 04/28/24 17:30 Triglycerides Level 248 mg/dL (< 150) Cholesterol Level 220 mg/dL (< 200) LDL Cholesterol 146 mg/dL (< 100) HDL Cholesterol 46 mg/dL (40-59) Thyroid Stimulating Hormone (TSH) 2.72 uIU/mL (0.55-4.78) POC Glucose 100 mg/dl (70-106) White Blood Count 9.0 10^3/uL (4.4-10.8) Red Blood Count 3.61 10^6/uL (4.0-5.20) Hemoglobin 12.1 g/dL (12.2-16.2) Hematocrit 35.7 % (36.0-46.0) Mean Corpuscular Volume 98.9 fL (80.0-100.0) Mean Corpuscular Hemoglobin 33.5 pg (28.0-32.0) Mean Corpuscular Hemoglobin Concent 33.9 g/dL (32.0-36.0) Red Cell Distribution Width 14.0 % (11.8-14.3) Platelet Count 232 10^3/uL (140-450) Mean Platelet Volume 8.3 fL (6.9-10.8) Neutrophils (%) (Auto) 51.7 % (37.0-80.0) Lymphocytes (%) (Auto) 38.2 % (10.0-50.0) Monocytes (%) (Auto) 6.6 % (0.0-12.0) Eosinophils (%) (Auto) 2.0 % (0.0-7.0) Basophils (%) (Auto) 1.5 % (0.0-2.0) Neutrophils # (Auto) 4.7 10 ^3/uL (1.6-8.6) Lymphocytes # (Auto) 3.4 10 ^3/uL (0.4-5.4) Monocytes # (Auto) 0.6 10 ^3/uL (0-1.3) Eosinophils # (Auto) 0.2 10 ^3/uL (0-0.8) Basophils # (Auto) 0.1 10 ^3/uL (0-0.2) Nucleated Red Blood Cells 0.1 % Sodium Level 137 mmol/L (136-145) Potassium Level 4.0 mmol/L (3.5-5.1) Chloride Level 106 mmol/L (98-107) Carbon Dioxide Level 24 mmol/L (20-31) Anion Gap 7 (5-15) Blood Urea Nitrogen 18 mg/dL (9-23) Creatinine 0.91 mg/dL (0.550-1.02) Glomerular Filtration Rate Calc 69 mL/min (>90) BUN/Creatinine Ratio 19.8 (10.0-20.0) Serum Glucose 106 mg/dL (74-106) Calcium Level 9.7 mg/dL (8.7-10.4) Total Bilirubin 0.3 mg/dL (0.2-1.0) Aspartate Amino Transferase (AST) 32 U/L (13-40) Alanine Aminotransferase (ALT) 18 U/L (7-40) Alkaline Phosphatase 72 U/L (46-116) Troponin I High Sensitivity 8 ng/L (</=34) Total Protein 7.3 g/dL (5.7-8.2) Albumin 4.2 g/dL (3.2-4.8) Urine Color Light-yellow (Yellow) Urine Clarity Clear (Clear) Urine pH 6.5 (5.0-9.0) Urine Specific [place] 1.011 (1.001-1.035) Urine Protein Negative (Negative) Urine Ketones Negative (Negative) Urine Blood 1+ /uL (Negative) Urine Nitrite Negative (Negative) Urine Bilirubin Negative (Negative) Urine Urobilinogen Normal mg/dL (Negative) Urine Leukocyte Esterase Negative /uL (Negative) Urine RBC 2 /hpf (0 - 4) Urine Microscopic WBC 2 /HPF (0-5) Urine Squamous Epithelial Cells Few /hpf (<5) Urine Bacteria None seen /hpf (None Seen) Urine Glucose Normal mg/dL (Normal) Other Laboratory Tests 04/29/24 04:48 Brief Hx & Hospital Course: Final diagnoses: Chest pain, most likely musculoskeletal Hypertension Dyslipidemia Type 2 diabetes 68-year-old female who was admitted for chest pain and back pain. She was having upper back pain radiating to the chest. Troponins were negative. Echocardiogram was done was negative Cardiology saw the patient no need for further workup The patient today says her pain is gone. She was given ibuprofen p.r.n. which helped her pain and a hot pack to her neck muscles She is asymptomatic now so she can be discharged home to continue same home medications Her lipid panel was checked showed triglycerides of 248 cholesterol 220 LDL 146, she takes atorvastatin She needs to follow a better exercise and diet program and continue the Lipitor Follow up with the primary care physician as soon as possible Condition at Discharge: Stable Final Diagnosis/Problems List Chest pain, most likely musculoskeletal Hypertension Dyslipidemia Type 2 diabetes Discharge Disposition: Home SNF Discharge Will this Physician continue t: No Discharge Instruct/Medications Diet: Consistent carbohydrate, Cardiac 2g Na,low cholest Activity: No Restrictions, As Tolerated Follow Up/Referral: PCP as soon as possible Medications: Same home medications Discharge Statement: "Patient was advised to return to the ER or call 911 if any headaches, dizziness, shortness of breath, chest pain, abdominal pain, bleeding, fevers, or worsening of medical condition. Patient was counseled about treatment plan, medications, possible side effects, patientverbalized understanding. All questions were answered to the best of my ability. This discharge took greater then 30 minutes in planning, reviewing documentation, counseling the patient, and discussing with other team members." ASSESSMENT ASSESSMENT Assessment Chest pain, most likely musculoskeletal Hypertension Dyslipidemia Type 2 diabetes Date of Service: Apr 30, 2024 Billing Provider: IZABELLA LANE MD Common Visit Codes: NOT BILLABLE IZABELLA LANE MD Apr 30, 2024 13:20
[2024-04-30 15:02] VITALS: BP 127/63; PULSE 58; RESP 16; TEMP 97.9; O2SAT 95
== END 2024-04-30 15:38 | disposition home or self-care (01) | DRG 313 ==
LOC: ER 13:07 → OVERFLOW 23:30 → TELE-EAST 04-29 12:38
PROVIDERS: ADMIT Internal Medicine Geriatric Medicine; ATTEND Internal Medicine Geriatric Medicine
DX: R07.89 Other chest pain (principal); E78.5 Hyperlipidemia, unspecified; M54.9 Dorsalgia, unspecified; I10 Essential (primary) hypertension; E11.9 Type 2 diabetes mellitus without complications; Z79.2 Long term (current) use of antibiotics; Z79.899 Other long term (current) drug therapy; Z79.1 Long term (current) use of non-steroidal anti-inflammatories (NSAID); Z79.891 Long term (current) use of opiate analgesic; Z79.82 Long term (current) use of aspirin
CPT/HCPCS: 36415; 71045; 80048; 80053; 80061; 81001; 82962; 84443; 84484; 85025; 93005; 93306; 96374; G0378; J2405